=== PATIENT | male | born 1965 | race Caucasian/White ===

== ENCOUNTER → 2018-01-02 | Outpatient (CLI) | payer BC ==
--- NOTE | 2018-01-02 15:11 | RAD ---
Abdominal wall ultrasound, 01/02/2018: History: Periumbilical lump, probable hernia The area of tenderness and palpable concern just superior to the umbilicus at the midline was carefully scanned. There is protrusion of medium echogenicity material through the anterior abdominal wall into the subcutaneous soft tissues. The appearance that of a fat-containing periumbilical hernia. It was reducible by the cardiovascular radiologic technologist with pressure. No bowel herniation is seen. The fascial defect measures approximately 5 mm. IMPRESSION: Small periumbilical fat-containing hernia.
== END | disposition home or self-care (01) ==
LOC: US 13:42
PROVIDERS: ATTEND Nurse Practitioner Family
DX: K42.9 Umbilical hernia without obstruction or gangrene (principal)
CPT/HCPCS: 76705

== ENCOUNTER → 2018-02-14 | Day surgery (SDC) | payer BC ==
[~2018-02-14] MED LIST: ALBUTEROL SULFATE 2.5 MG/3 ML NEBU. NEB PRN; ATROPINE 0.5 MG/5 ML DISP.SYRIN. IV PRN; IV RINGERS SOLUTION,LACTATED 1,000 ML IV SCH; LIDOCAINE 2% PF Vial for OR 5 ML VIAL. ONE; LOSA100T2 PO; NALOXONE 0.4 MG/ML VIAL. IV PRN; ONDANSETRON PF 4 MG/2 ML VIAL. IV PRN; PROPOFOL 40 ML IV ONE; SIMV10TA3 PO; diphenhydrAMINE 50 MG/ML VIAL IV PRN
[2018-02-14 09:39] VITALS: BP 141/72
== END | disposition home or self-care (01) ==
LOC: SURG 07:12
PROVIDERS: ATTEND Internal Medicine Gastroenterology
DX: Z12.11 Encounter for screening for malignant neoplasm of colon (principal); K57.30 Diverticulosis of large intestine without perforation or abscess without bleeding; K64.8 Other hemorrhoids; I10 Essential (primary) hypertension; E78.5 Hyperlipidemia, unspecified; J45.909 Unspecified asthma, uncomplicated; Z98.890 Other specified postprocedural states; Z79.899 Other long term (current) drug therapy
CPT/HCPCS: 45378; J2704; J7120; J2001

== ENCOUNTER → 2018-05-14 | Outpatient (CLI) | payer BC ==
[2018-02-14 09:39] VITALS: BP 141/72
[~2018-05-14] MED LIST changes: -ALBUTEROL SULFATE 2.5 MG/3 ML NEBU. NEB PRN; -ATROPINE 0.5 MG/5 ML DISP.SYRIN. IV PRN; -IV RINGERS SOLUTION,LACTATED 1,000 ML IV SCH; -LIDOCAINE 2% PF Vial for OR 5 ML VIAL. ONE; -NALOXONE 0.4 MG/ML VIAL. IV PRN; -ONDANSETRON PF 4 MG/2 ML VIAL. IV PRN; -PROPOFOL 40 ML IV ONE; -diphenhydrAMINE 50 MG/ML VIAL IV PRN
--- NOTE | 2018-05-14 17:59 | RAD ---
Scrotal ultrasound, 05/14/2018: HISTORY: Left testicular pain The right testicle measures 5.1 x 3.8 x 2.3 cm while the left testicle measures 4.1 x 3.0 x 1.8 cm. There is symmetric blood flow within both testicles. No testicular mass is evident. A couple of tiny echogenic foci in the left testicle are compatible with minimal microlithiasis. No significant epididymal abnormality is seen. There is a small amount of fluid in the right scrotal sac. IMPRESSION: 1. Minimal microlithiasis on the left. 2. Small right hydrocele. 3. No acute abnormality is detected. Electronically signed by: Shin Garrett MD (05/14/2018 5:55 PM) [facility]
== END | disposition home or self-care (01) ==
LOC: US 10:27
PROVIDERS: ATTEND Nurse Practitioner Family
DX: N43.2 Other hydrocele (principal); N50.89 Other specified disorders of the male genital organs; I10 Essential (primary) hypertension; E78.5 Hyperlipidemia, unspecified; J45.909 Unspecified asthma, uncomplicated
CPT/HCPCS: 76870

== ENCOUNTER → 2019-08-29 | Outpatient (CLI) | payer BC ==
[2018-02-14 09:39] VITALS: BP 141/72
[~2019-08-29] MED LIST changes: +IOHEXOL 300 MG/ML 75 ML VIAL. IV ONE; +SIMV10TA15 PO; -SIMV10TA3 PO
--- NOTE | 2019-08-29 08:49 | RAD ---
CT study of the soft tissues of the neck with contrast Clinical indications: Mucocele of the salivary gland. TECHNIQUE: After IV infusion of 75 cc of Omnipaque 300, helical CT scanning of the soft tissues of the neck from the base of the skull down through the lung apices was performed. PQRS compliance Statement One or more of the following individualized dose reduction techniques were utilized for this study: 1. Automated exposure control 2. Adjustment of the mA and/or kV according to patient size 3. Use of iterative reconstruction technique COMPARISON: None available. FINDINGS: There is streaking artifact related to dental hardware. This does partially obscure some images. Given this, no parotid or submandibular salivary gland mass is seen. The adenoids are not abnormally enlarged. The palatine tonsils are symmetric. The epiglottis and aryepiglottic folds and preepiglottic fat space and true cords and false cords are unremarkable. There is a 10 mm hypodense nodule of the right lobe of the thyroid gland. No abnormally enlarged cervical lymphadenopathy is seen. Involving the floor of the mouth on the left side anteriorly, there is a hypodense area which demonstrates Hounsfield unit measurements of 35. This has a wedge shape configuration and measures 16 mm in transverse dimension and 17 mm in AP dimension and 20 mm in vertical dimension. This does not extend across the midline. No erosion or lytic process of the adjacent mandible is seen. The paranasal sinuses are clear. The lung apices are clear. IMPRESSION: Wedge-shaped hypodense lesion of the anterior left side of the floor of the mouth with Hounsfield unit measurements of 35. Therefore this does not represent simple cyst or simple fluid. No enlarged cervical lymphadenopathy. 10 mm hypodense nodule of the right lobe of the thyroid gland. This may be further evaluated sonographically. Electronically signed by: Tesfaye Mg MD (08/29/2019 8:46 AM) [facility]
== END | disposition home or self-care (01) ==
LOC: CT 07:52
PROVIDERS: ATTEND Otolaryngology
DX: E04.1 Nontoxic single thyroid nodule (principal); K13.79 Other lesions of oral mucosa; K11.6 Mucocele of salivary gland
CPT/HCPCS: 70491; Q9967

== ENCOUNTER 2021-04-13 06:31 | Emergency (ER) | payer BC ==
[~2021-04-13] VITALS: Ht 180.3 cm; Wt 113.0 kg
[~2021-04-13 06:31] MED LIST changes: -IOHEXOL 300 MG/ML 75 ML VIAL. IV ONE
--- NOTE | 2021-04-13 06:54 | PHYS DOC ---
Past History Past Medical History: High Cholesterol, Hypotension Past Surgical History: Other Additional Past Surgical Histo: left 4th digit, rt knee Alcohol Use: Heavy Additional Alcohol Information: couple beers a night General Adult EDM: Chief Complaint: ABDOMINAL PAIN HPI: HPI: Patient is a 55-year-old male coming in for 2 days of right lower quadrant abdominal pain. Patient states the pain is better with sitting down but becomes sharp when he tries to stand up. Has had decreased appetite and nausea. Last bowel movement last night, has had loose bowel movements during the day yesterday. Denies any vomiting, fevers, changes in urination. No past abdominal surgical history. Medical history of hypertension and dyslipidemia. Last p.o. intake last night. Review of Systems: Review of Systems: All other systems within normal limits except for as noted in the HPI Allergies: Allergies: Allergies Coded Allergies Type Severity Reaction Last Updated Verified No Known Drug Allergies 02/13/18 No Physical Exam: PE: Constitutional: Well developed, well nourished, no acute distress, non-toxic appearance. [] HENT: Normocephalic, atraumatic, bilateral external ears normal, nose normal. [] Eyes: PERRLA, conjunctiva normal, no discharge. [] Neck: No rigidity, supple, no stridor. [] Cardiovascular: Regular rate and rhythm, brisk cap refill [] Lungs & Thorax: Non labored symmetric respirations, no tachypnea or respiratory distress [] Abdomen: Soft, nondistended, negative Chavira sign, McBurney's point tenderness, negative Rovsing sign Skin: Warm, dry, no erythema, no rash. [] Back: Unremarkable Extremities: No deformities, range of motion grossly intact, no lower extremity edema [] Neurologic: Alert and oriented X 3, no focal deficits noted. [] Psychologic: Affect normal, judgement normal, mood normal. [] Current Patient Data: Vital Signs: Vital Signs Date Time Temp Pulse Resp B/P (MAP) Pulse Ox O2 Delivery O2 Flow Rate FiO2 04/13/21 06:40 98.0 87 20 146/92 (110) 94 Room Air EKG: EKG: [] Radiology/Procedures: Radiology/Procedures: [address] [address] IMAGING REPORT Signed PATIENT: PORTER GUTIÉRREZ I ACCOUNT: [id number] : 1965 LOCATION: ER AGE: 55 SEX: M EXAM STATUS: REG ER ORD. PHYSICIAN: RUBINA SYED MD REASON: RLQ pain onset last night, nausea/vomiting. 75mls omni 300 PROCEDURE: CT ABD PELV W/ IV CONTRST ONLY EXAMINATION: CT abdomen and pelvis with IV contrast. INDICATION:55 years, Male, right lower quadrant abdominal pain. TECHNIQUE: Axial CT images of the abdomen and pelvis were obtained. Coronal and sagittal reformatted performed. COMPARISON: None. Exposure: One or more of the following individualized dose reduction techniques were utilized for this examination: 1. Automated exposure control 2. Adjustment of the mA and/or kV according to patient size 3. Use of iterative reconstruction technique. FINDINGS: LOWER CHEST: Unremarkable ABDOMEN/PELVIS: Normal morphology and size of the liver which is enhancement. Diffuse steatosis. No suspicious focal hepatic lesion. Unremarkable gallbladder, biliary ducts, spleen, pancreas, adrenals and kidneys. Diffuse thickened appendix with 6 mm appendicolith and periappendicular fat stranding and trace amount of fluid. No extraluminal gas suggest perforation. No fluid collection to suggest abscess. No bowel dilation. Mild cecal wall, likely reactive. Few colonic diverticulosis without diverticulitis. Normal caliber abdominal aorta. Mesenteric arteries and portal vein are patent. No pneumoperitoneum or ascites. No lymphadenopathy in the abdomen or pelvis by size criteria. Underdistended urinary bladder which limits evaluation. Unremarkable prostate. No suspicious pelvic masses. MUSCULOSKELETAL: Small fat-containing umbilical and right inguinal hernias. Surgical clips in the left inguinal canal. No acute osseous process. Bilateral L5 pars defect. Multilevel degenerative changes in the spine. IMPRESSION: 1. Acute uncomplicated appendicitis with appendicolith. 2. Diffuse hepatic steatosis. 3. Other chronic/incidental findings, as described above. Electronically signed by: Simin Argueta MD (04/13/2021 7:29 AM) [facility] DICTATED AND SIGNED BY: SIMIN ARGUETA MD DATE: 04/13/21 0722 CC: RUBINA SYED MD; ONIEL RDZ CARTOON ARTIST-C ~MTH0 0 [] Heart Score: C/O Chest Pain: No Risk Factors: Risk Factors: DM, Current or recent (<one month) smoker, HTN, HLP, family history of CAD, obesity. Risk Scores: Score 0 - 3: 2.5% MACE over next 6 weeks - Discharge Home Score 4 - 6: 20.3% MACE over next 6 weeks - Admit for Clinical Observation Score 7 - 10: 72.7% MACE over next 6 weeks - Early Invasive Strategies Course & Med Decision Making: Course & Med Decision Making Discussed with general surgeon Dr. Craven who will accept the patient at [place], admitted to hospitalist Dr. Rozina Bolanos Disclaimer: Luis Miguel Disclaimer: This electronic medical record was generated, in whole or in part, using a voice recognition dictation system. Departure Departure: Impression: Primary Impression: Acute appendicitis Disposition: 02 SHORT TERM HOSPITAL Condition: STABLE Referrals: ONIEL RDZP-C (PCP) RUBINA SYED MD Apr 13, 2021 06:53
[2021-04-13] MEDS ORDERED: CONTRAST GIVEN. MC PRN (07:00)
[2021-04-13 07:15] LABS: BASO # 0.1 x10^3/uL (0.0-0.2); BASO % 1 % (0-3); EOS # 0.1 x10^3/uL (0.0-0.7); EOS % 1 % (0-3); HEMATOCRIT 45.2 % (39.0-53.0); HEMOGLOBIN 15.7 g/dL (13.0-17.5); LYMPH # 1.2 x10^3/uL (1.0-4.8); LYMPH % 11 % (24-48); MEAN CORPUSCULAR HEMOGLOBIN 33 pg (25-35); MEAN CORPUSCULAR HGB CONC 35 g/dL (31-37); MEAN CORPUSCULAR VOLUME 94 fL (79-100); MONO # 0.5 x10^3/uL (0.0-1.1); MONO % 5 % (0-9); NEUT # 8.8 x10^3uL (1.8-7.7); NEUT % 82 % (31-73); PLATELET COUNT 190 x10^3/uL (140-400); RED BLOOD COUNT 4.82 x10^6/uL (4.30-5.70); RED CELL DISTRIBUTION WIDTH 12.8 % (11.5-14.5); WHITE BLOOD COUNT 10.7 x10^3/uL (4.0-11.0)
[2021-04-13] MEDS ORDERED: IOHEXOL 300 MG/ML 75 ML VIAL. IV ONE (07:30)
--- NOTE | 2021-04-13 07:31 | RAD ---
EXAMINATION: CT abdomen and pelvis with IV contrast. INDICATION:55 years, Male, right lower quadrant abdominal pain. TECHNIQUE: Axial CT images of the abdomen and pelvis were obtained. Coronal and sagittal reformatted performed. COMPARISON: None. Exposure: One or more of the following individualized dose reduction techniques were utilized for thi s examination: 1. Automated exposure control 2. Adjustment of the mA and/or kV according to patient size 3. Use of iterative reconstruction technique. FINDINGS: LOWER CHEST: Unremarkable ABDOMEN/PELVIS: Normal morphology and size of the liver which is enhancement. Diffuse steatosis. No suspicious focal hepatic lesion. Unremarkable gallbladder, biliary ducts, spleen, pancreas, adrenals and kidneys. Diffuse thickened appendix with 6 mm appendicolith and periappendicular fat stranding and trace amoun t of fluid. No extraluminal gas suggest perforation. No fluid collection to suggest abscess. No bowel dilation. Mild cecal wall, likely reactive. Few colonic diverticulosis without diverticulitis. Normal caliber abdominal aorta. Mesenteric arteries and portal vein are patent. No pneumoperitoneum o r ascites. No lymphadenopathy in the abdomen or pelvis by size criteria. Underdistended urinary bladd er which limits evaluation. Unremarkable prostate. No suspicious pelvic masses. MUSCULOSKELETAL: Small fat-containing umbilical and right inguinal hernias. Surgical clips in the left inguinal canal. No acute osseous process. Bilateral L5 pars defect. Multilevel degenerative changes in the spine. IMPRESSION: 1. Acute uncomplicated appendicitis with appendicolith. 2. Diffuse hepatic steatosis. 3. Other chronic/incidental findings, as described above. Electronically signed by: Edmund Argueta MD (04/13/2021 7:29 AM) [facility]
[2021-04-13 07:32] LABS: ALBUMIN 3.8 g/dL (3.4-5.0); ALBUMIN/GLOBULIN RATIO 1.1 (1.0-1.7); CALCIUM 8.5 mg/dL (8.5-10.1); CREATININE 1.2 mg/dL (0.7-1.3); GFR 63.3; POTASSIUM 4.4 mmol/L (3.5-5.1); TOTAL BILIRUBIN 0.7 mg/dL (0.2-1.0); TOTAL PROTEIN 7.4 g/dL (6.4-8.2)
[2021-04-13 07:55] LABS: BILIRUBIN,URINE NEG (NEG); CLARITY,URINE CLEAR; COLOR,URINE YELLOW; GLUCOSE,URINE NEG (NEG); NITRITE,URINE NEG (NEG); UROBILINOGEN,URINE 0.2 mg/dL (0.2 mg/dL)
[2021-04-13 07:57] LABS: BACTERIA,URINE 0 /HPF (0-FEW); RBC,URINE OCC /HPF (0-2); SQUAMOUS EPITHELIAL CELL,UR OCC /LPF; WBC,URINE OCC /HPF (0-4)
[2021-04-13] MEDS ORDERED: PIPERACILLIN/TAZOBACTAM 3.375 GM in IV NORMAL SALINE 50ML 50 ML IV ONE (08:00)
[2021-04-13] MEDS ORDERED: IV NORMAL SALINE 50ML 50 ML ONE (08:03)
[2021-04-13] MEDS ORDERED: PIPERACILLIN/TAZOBACTAM 3.375 GM VIAL IV ONE (08:03)
[2021-04-13] MEDS ORDERED: KETOROLAC 30 MG/ML VIAL. IVP ONE (09:00)
[2021-04-13 10:17] VITALS: BP 158/92
== END 2021-04-13 10:40 | disposition short-term general hospital (02) ==
LOC: ER 06:31
DX: K35.80 Unspecified acute appendicitis (principal); E78.00 Pure hypercholesterolemia, unspecified; I10 Essential (primary) hypertension; F10.20 Alcohol dependence, uncomplicated; Z20.822 Contact with and (suspected) exposure to COVID-19; Y90.9 Presence of alcohol in blood, level not specified
CPT/HCPCS: 36415; 74177; 80053; 81001; 83690; 85025; 87426; 96365; 96375; 99285; C9803; J1885; J2543; Q9967; U0003